=== PATIENT | female | born 1995 | race Asian ===

== ENCOUNTER 2019-04-08 14:47 | Emergency (ER) | payer OTHER ==
[2019-04-08 15:01] VITALS: BP 116/71
--- NOTE | 2019-04-08 15:14 | UC ---
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 Occurred about 30 mnutes prior to arrive. Has been using ice for relief of pain. - History of Current Complaint Chief Complaint: UCGeneralIllness Stated Complaint: BURN IN MOUTH FROM HOT FOOD Time Seen by Provider: 04/08/19 15:04 Hx Obtained From: Patient Hx Last Menstrual Period: 04/08/2019 ?: No Onset/Duration: Sudden Onset, Lasting Minutes Severity: Moderate Pain Intensity: 4 Cough: None Associated Signs & Symptoms: Positive: Negative - Allergies/Home Medications Allergies/Adverse Reactions: Allergies Allergy/AdvReac Type Severity Reaction Status Date / Time No Known Allergies Allergy Verified 04/08/19 14:58 PMH/Surg Hx/FS Hx/Imm Hx Previously Healthy: Yes - Surgical History Surgical History: Yes Surgery Procedure, Year, and Place: RIGHT BREAST TUMOR REMOVED - Family History Known Family History: Positive: Non-Contributory - Social History Occupation: Student Lives: Dormitory/Roommates Alcohol Use: None Substance Use Type: None Smoking Status (MU): Never Smoked Tobacco Review of Systems All Other Systems Reviewed And Are Negative: Yes Constitutional: Positive: Negative ENT: Positive: Other - oral pain Respiratory: Positive: Negative Cardiovascular: Positive: Negative Is Patient Immunocompromised?: No Physical Exam Triage Information Reviewed: Yes Appearance: Well-Appearing, Pain Distress - mild Vital Signs: Initial Vital Signs Temp 99.1 F 04/08/19 14:58 Pulse 76 04/08/19 14:58 Resp 18 04/08/19 14:58 BP 116/71 04/08/19 14:58 Pulse Ox 96 04/08/19 14:58 Eye Exam: Normal ENT: Positive: Pharynx normal, Uvula midline, Other - upper gum line with erythema and mild swelling, overlying 9(partially)-10-11. Erythema at left angle of mouth. Dental Exam: Normal Respiratory: Positive: Lungs clear, Normal breath sounds Cardiovascular: Positive: RRR, No Murmur Skin Exam: Other - mild erythema at left angle of mouth. Outer lips not affected. Throat Pain/Nasal Course/Dx - Course Course Of Treatment: saline rinses, ibuprofen for pain control. Declined dose here. Discussed option of lidocaine topically-->declined. Will send tx for penicillin VK, but aware to initiate only if there is increasing swelling and pain along the gum line. - Differential Dx/Diagnosis Differential Diagnosis/HQI/PQRI: Other - oral burn Provider Diagnosis: Burn of oral mucosa Discharge ED - Sign-Out/Discharge Documenting (check all that apply): Patient Departure All imaging exams completed and their final reports reviewed: No Studies - Discharge Plan Condition: Stable Disposition: HOME Prescriptions: Penicillin VK 500 MG TAB(NF) [Penicillin VK 500 mg Tab] 500 mg PO QID #20 tab Patient Education Materials: Superficial Burn (ED) Referrals: No Primary Care Phys,NOPCP [Primary Care Provider] - Additional Instructions: For control of pain: Continue use of ice chips and compresses. Use vaseline on the lips to relieve the discomfort. Swish and spit warm water and salt about every 2 hours today. You have a prescription for penicillin. USE THE ANTIBIOTIC ONLY IF YOU DEVELOP INCREASING SWELLING AND PAIN AROUND THE GUM LINE. - Billing Disposition and Condition Condition: STABLE Disposition: Home
== END 2019-04-08 15:30 | disposition home or self-care (01) ==
LOC: UCEAST 14:47
DX: T28.0XXA Burn of mouth and pharynx, initial encounter (principal); X10.1XXA Contact with hot food, initial encounter; Y92.9 Unspecified place or not applicable
CPT/HCPCS: 99212; G0463